=== PATIENT | female | born 1960 | race Caucasian/White ===

== ENCOUNTER 2021-02-20 10:38 | Emergency (ER) | payer OTHER ==
[~2021-02-20] VITALS: Ht 162.6 cm; Wt 108.9 kg
[2021-02-20] MEDS ORDERED: AMOX-CLAV 875-1 EAC5 PO (11:07)
[2021-02-20] MEDS ORDERED: HYDR1TAB94 PO (12:18)
== END 2021-02-20 12:30 | disposition home or self-care (01) ==
LOC: ER 10:38
DX: S71.152A Open bite, left thigh, initial encounter (principal); W54.0XXA Bitten by dog, initial encounter
CPT/HCPCS: 10140; 73552; 76882; 99284-25

== ENCOUNTER → 2023-01-30 | Outpatient (CLI) | payer OTHER ==
[~2023-01-30] MED LIST: AMOX-CLAV 875-1 EAC5 PO; HYDR1TAB94 PO
== END ==
LOC: LAB 16:20 → LAB SHORT 16:20
DX: L08.9 Local infection of the skin and subcutaneous tissue, unspecified (principal)
CPT/HCPCS: 87070; 87077; 87205